=== PATIENT | female | born 1980 | race Caucasian/White ===

== ENCOUNTER 2017-07-06 09:28 | Emergency (ER) | payer MEDICAID, OTHER ==
[2017-07-06 09:38] VITALS: BP 112/73
--- NOTE | 2017-07-06 12:09 | ED Physician Documentation ---
PD HPI URI - Stated complaint Stated Complaint: SORE THROAT - Chief complaint Chief Complaint: Heent - History obtained from History obtained from: Patient - History of Present Illness Timing - onset: Other (Sore throat predominantly left-sided with lymph node swelling since yesterday without cough or rhinorrhea. She has had body aches and subjective fevers.) Review of Systems Constitutional: reports: Fever, Chills, Myalgias. 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: Yes - POLST Patient has POLST: No PD ED PE NORMAL - Vitals Vital signs reviewed: Yes - General General: Alert and oriented X 3, No acute distress - HEENT HEENT: Other (Significant tonsillar enlargement on the left with some exudates and moderate anterior cervical adenopathy, also predominantly on the left.) - Neuro Neuro: Alert and oriented X 3, Normal speech Results - Vitals Vitals: Vital Signs - 24 hr 07/06/17 09:35 Temperature 36.5 C Heart Rate 83 Respiratory 20 Rate Blood Pressure 112/73 O2 Saturation 100 Oxygen O2 Source Room air - Labs Labs: Laboratory Tests 07/06/17 09:38 Group A Strep Rapid Negative PD MEDICAL DECISION MAKING - ED course ED course: 4 out of 4 Cent[facility] will treat presumptively despite negative strep. Departure - Departure Disposition: 01 Home, Self Care Clinical Impression: Pharyngitis Qualifiers: Pharyngitis/tonsillitis etiology: unspecified etiology Qualified Code(s): J02.9 - Acute pharyngitis, unspecified Condition: Good Record reviewed to determine appropriate education?: Yes Instructions: ED Strep Pharyngitis Poss Prescriptions: Penicillin V Potassium 500 mg PO QID #40 tablet Comments: Ibuprofen as needed for pain. Drink plenty of fluids. Call your doctor to arrange a follow-up appointment, make the next available appointment. In the interim, return anytime if worse or if new symptoms develop.
== END 2017-07-06 12:18 | disposition home or self-care (01) ==
LOC: ED 09:28
DX: J02.9 Acute pharyngitis, unspecified (principal)
CPT/HCPCS: 87070; 87430; 99283

== ENCOUNTER 2018-07-15 12:35 | Outpatient (CLI) | payer MEDICAID | END 2018-07-15 12:36 | disposition home or self-care (01) | LOC: LAB 12:35 | PROVIDERS: ATTEND Nurse Practitioner Obstetrics & Gynecology | DX: Z32.01 Encounter for pregnancy test, result positive (principal) | CPT/HCPCS: 36415; 84702 ==

== ENCOUNTER 2018-09-22 08:00 | Outpatient (CLI) | payer MEDICAID ==
[2018-09-22 14:17] LABS: MUDS CUTOFF CONCENTRATIONS CUTOFF CONC BELOW:
[2018-09-22 14:43] LABS: AMPHETAMINE SCREEN,URINE NEGATIVE (NEGATIVE); BENZODIAZEPINES SCREEN, URINE NEGATIVE (NEGATIVE); COCAINE SCREEN URINE NEGATIVE (NEGATIVE); METHADONE SCREEN, URINE NEGATIVE (NEGATIVE); METHAMPHETAMINES SCREEN, URINE NEGATIVE (NEGATIVE); OPIATE SCREEN, URINE NEGATIVE (NEGATIVE); OXYCODONE SCREEN, URINE NEGATIVE (NEGATIVE); PROPOXYPHENE SCREEN, URINE NEGATIVE (NEGATIVE); TRICYCLIC ANTIDEPRESSANT,URINE NEGATIVE (NEGATIVE)
== END 2018-09-22 23:59 | disposition home or self-care (01) ==
LOC: LAB.R 08:00
PROVIDERS: ATTEND Nurse Practitioner Obstetrics & Gynecology
DX: Z36.9 Encounter for antenatal screening, unspecified (principal); Z11.3 Encounter for screening for infections with a predominantly sexual mode of transmission
CPT/HCPCS: 80306; 87491; 87591

== ENCOUNTER 2018-09-25 09:36 | Outpatient (CLI) | payer MEDICAID ==
[2018-09-25 09:52] LABS: BASOPHILS # (AUTO) 0.1 10^3/uL (0.0-0.1); BASOPHILS % (AUTO) 0.9 %; EOSINOPHILS # (AUTO) 0.1 10^3/uL (0.0-0.7); EOSINOPHILS % (AUTO) 1.1 %; HGB - HEMOGLOBIN 11.2 g/dL (12.0-16.0); LYMPHOCYTES # (AUTO) 2.1 10^3/uL (1.5-3.5); LYMPHOCYTES % (AUTO) 21.6 %; MEAN CORPUSCULAR HEMOGLOBIN 30.1 pg (27.0-31.0); MEAN CORPUSCULAR HGB CONC 33.9 g/dL (32.0-36.0); MEAN CORPUSCULAR VOLUME 88.7 fL (81.0-99.0); MEAN PLATELET VOLUME 7.6 fL (7.9-10.8); MONOCYTES # (AUTO) 0.7 10^3/uL (0.0-1.0); MONOCYTES % (AUTO) 7.1 %; NEUTROPHILS # (AUTO) 6.7 10^3/uL (1.5-6.6); NEUTROPHILS % (AUTO) 69.3 %; PLT - PLATELET COUNT 297 10^3/uL (130-450); RED BLOOD COUNT 3.73 10^6/uL (4.20-5.40); RED CELL DISTRIBUTION WIDTH 12.8 % (12.0-15.0); WHITE BLOOD COUNT 9.6 x10^3/uL (4.8-10.8)
[2018-09-25 10:55] LABS: BILIRUBIN,URINE NEGATIVE (NEGATIVE); GLUCOSE, URINE (UA) NEGATIVE (NEGATIVE); KETONES,URINE (UA) NEGATIVE (NEGATIVE); LEUKOCYTE ESTERASE, URINE SMALL (NEGATIVE); NITRITE,URINE NEGATIVE (NEGATIVE); OCCULT BLOOD,URINE TRACE-LYSE (NEGATIVE); PH,URINE 5.5 PH (5.0-7.5); PROTEIN,URINE NEGATIVE (NEGATIVE); UROBILINOGEN,URINE 0.2 (NORMAL) E.U./dL (NORMAL)
[2018-09-25 11:12] LABS: CLARITY,URINE HAZY (CLEAR)
[2018-09-25 11:36] LABS: BACTERIA,URINE Rare /HPF (None Seen); SQUAMOUS EPITHELIAL CELL,UR FEW Squamous (<= Few)
[2018-09-26 13:27] LABS: HEPATITIS C ANTIBODY NON-REACTIVE (NON-REACTIVE)
[2018-09-26 13:28] LABS: HEPATITIS B SURFACE ANTIGEN NON-REACTIVE (NON-REACTIVE)
[2018-09-26 14:15] LABS: HIV AG/AB 4TH GEN NON-REACTIVE (NON-REACTIVE)
== END 2018-09-25 09:37 | disposition home or self-care (01) ==
LOC: LAB 09:36
PROVIDERS: ATTEND Nurse Practitioner Obstetrics & Gynecology
DX: Z36.9 Encounter for antenatal screening, unspecified (principal)
CPT/HCPCS: 36415; 81001; 81599; 85025; 86762; 86803; 86850; 86900; 86901; 87086; 87340; 87389

== ENCOUNTER 2019-03-06 08:00 | Outpatient (CLI) | payer MEDICAID ==
[2019-03-06 19:21] LABS: TOTAL PROTEIN 24HR,URINE 168 mg/24hr (40-150); TOTAL PROTEIN,URINE TIMED 7 mg/dL; TOTAL VOLUME 24HRS,URINE 2400 mL
== END 2019-03-06 23:59 | disposition home or self-care (01) ==
LOC: LAB.R 08:00
PROVIDERS: ATTEND Student in an Organized Health Care Education/Training Program
DX: O12.10 Gestational proteinuria, unspecified trimester (principal); I10 Essential (primary) hypertension
CPT/HCPCS: 84156

== ENCOUNTER 2023-08-01 13:10 | Emergency (ER) | payer MEDICAID ==
[2023-08-01 13:24] VITALS: BP 136/83; O2SAT 100
== END 2023-08-01 15:55 | disposition left against medical advice (07) ==
LOC: ED 13:10
DX: Z53.21 Procedure and treatment not carried out due to patient leaving prior to being seen by health care provider (principal)

== ENCOUNTER 2023-08-13 08:44 | Emergency (ER) | payer MEDICAID ==
[2023-08-13 09:05] VITALS: O2SAT 98
--- NOTE | 2023-08-13 09:11 | ED Physician Documentation ---
PD HPI OPHTHO - Stated complaint Stated Complaint: RT EYE SWELLING - Chief complaint Chief Complaint: Heent - History obtained from History obtained from: Patient - History of Present Illness Timing - onset: Today, Last night (noted some discomfort of right eyelid and side of face last night. With swelling of eyelid today and electirical feeling toward the ear to eye. No tenderness. No eye pain. No crusting nor matting.) Timing - details: Abrupt onset, Still present Location: Right Quality / character: No: Itching Associated symptoms: Swelling (of eyelids). No: Discharge, Matting, FB sensation, Photophobia, Decreased vision, Headache Contributing factors: No: Recent URI, FB Similar symptoms before: Has not had sx before (no similar process on face. She states has had intermittent areas of wekness or numbness of arms, leg, vision loss, or confusion lasting hours to days then resolves. Has seen Neurologist with MRIs head and neck, and blood testing. No Dx as yet. Not MS. 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 - Present Medications Home Medications: Ambulatory Orders Medication Instructions Recorded Confirmed Escitalopram Oxalate 20 mg PO DAILY 08/13/23 08/13/23 Valacyclovir HCl [Valtrex] 500 mg PO TID 5 Days #15 tablet 08/13/23 dexAMETHasone [Decadron] 4 mg PO DAILY #5 tablet 08/13/23 - Allergies Allergies/Adverse Reactions: Allergies Allergy/AdvReac Type Severity Reaction Status Date / Time No Known Drug Allergies Allergy Verified 08/13/23 08:51 - Social History Does the pt smoke?: No Smoking Status: Never smoker Does the pt drink ETOH?: Yes Does the pt have substance abuse?: Yes Substance Use and Type: Marijuana - Immunizations Immunizations are current?: Yes - POLST Patient has POLST: No PD ED PE NORMAL - Vitals Vital signs reviewed: Yes - General General: Alert and oriented X 3, No acute distress, Well developed/nourished - HEENT HEENT: PERRL, EOMI, Other (no eye pain per pt. eyelid with swelling and faint redness but no focal swelling/firm/tender. Normal sensation. eyebrow is actually raised without her meaning to, so overactive and not weakened. ) Results - Vitals Vitals: Oxygen O2 Source Room air PD Medical Decision Making - ED course Complexity details: considered differential (redness mild with swelling right eyelids, without focal bump/tender. No tender at nose tip. Feeling of abn sensation/electircal tinglint from ear to eye area. No weakness. Consider trigeminal or facial nerve process. Does not seem simple stye/etc. ), d/w patient ED course: she states she has had intermittent self limited focal neuro symptoms in the past in other areas. Has seen Neurologist with eval of labs and MRI head/neck without Dx. No MS in particular. Has seen Wrapper And Preserver as well. No Dx. Symptoms are not followed by headaches and no history of migraines. Unclear current disagnosis, if is yet another presentation of whatever that is, or if local process. Given the swelling of the eyelid, I do think something local, and with electrical feeling from ear to periorbital, would consider early trigeminal neuralgia or facial neuritis. Consider steroid and antiviral. Departure - Departure Disposition: 01 Home, Self Care Clinical Impression: Periorbital swelling, Facial neuritis Condition: Stable Record reviewed to determine appropriate education?: Yes Follow-Up: Mercedes Oliva ARNP [Primary Care Provider] - Prescriptions: dexAMETHasone [Decadron] 4 mg PO DAILY #5 tablet Valacyclovir HCl [Valtrex] 500 mg PO TID 5 Days #15 tablet Comments: This does not look like a bacterial infection. Seems to be an irritation of the nerve through the area with a skin response. I am not sure how this fits with your other episodes of localized neurologic problems. In other situations around the face like this (like early Gracia's palsy or such), we would tend to treat with a combination of antiviral and steroid medications for several days thinking that may be part of the process. This is true and a reasonable percentage of Gracia's palsy which would be more weakness of the muscles from nerve irritation. 1 would consider overstimulation of the nerve to be a similar early process. We can try these over the next few days and see how your symptoms are. Return if more redness or localized swelling to suggest bacterial infection or any other symptoms develop. I sent your prescriptions to your preferred pharmacy. Forms: PCP List Discharge Date/Time: 08/13/23 10:14
[2023-08-13] MEDS: dexAMETHasone 4 MG TABLET PO STA (10:10)
[2023-08-13] MEDS: valACYclovir 500 MG TABLET PO STA (10:10)
[2023-08-13 10:18] VITALS: BP 127/80
== END 2023-08-13 10:14 | disposition home or self-care (01) ==
LOC: ED 08:44
DX: H02.843 Edema of right eye, unspecified eyelid (principal); G51.8 Other disorders of facial nerve
CPT/HCPCS: 99282; 99283; A9270; J8540

== ENCOUNTER 2023-09-16 08:00 | Outpatient (CLI) | payer MEDICAID, OTHER ==
[2023-09-16 17:32] LABS: BACTERIAL VAGINOSIS DNA POSITIVE (NEGATIVE); CANDIDA GLABRATA DNA NEGATIVE (NEGATIVE); CANDIDA GROUP DNA NEGATIVE (NEGATIVE); CANDIDA KRUSEI DNA NEGATIVE (NEGATIVE); TRICHOMONAS VAGINALIS DNA NEGATIVE (NEGATIVE)
== END 2023-09-16 23:59 | disposition home or self-care (01) ==
LOC: LAB.S 08:00
PROVIDERS: ATTEND Nurse Practitioner
DX: R30.0 Dysuria (principal); N89.8 Other specified noninflammatory disorders of vagina
CPT/HCPCS: 81514; 87086

== ENCOUNTER 2023-09-27 16:59 | Outpatient (CLI) | payer OTHER ==
[2023-09-27 20:48] LABS: BACTERIAL VAGINOSIS DNA NEGATIVE (NEGATIVE); CANDIDA GLABRATA DNA NEGATIVE (NEGATIVE); CANDIDA GROUP DNA NEGATIVE (NEGATIVE); CANDIDA KRUSEI DNA NEGATIVE (NEGATIVE); TRICHOMONAS VAGINALIS DNA NEGATIVE (NEGATIVE)
[2023-09-27 22:21] LABS: CHLAMYDIA TRACHOMATIS DNA NEGATIVE (NEGATIVE); NEISSERIA GONORRHOEAE DNA NEGATIVE (NEGATIVE); TRICHOMONAS VAGINALIS DNA NEGATIVE (NEGATIVE)
== END 2023-09-27 17:00 | disposition home or self-care (01) ==
LOC: LAB.F 16:59
PROVIDERS: ATTEND Physician Assistant Medical
DX: N89.8 Other specified noninflammatory disorders of vagina (principal)
CPT/HCPCS: 81514; 87491; 87591; 87661

== ENCOUNTER 2023-10-04 07:00 | Outpatient (CLI) | payer OTHER | END 2023-10-04 23:59 | disposition home or self-care (01) | LOC: LAB.S 07:00 | PROVIDERS: ATTEND Registered Nurse | DX: N30.00 Acute cystitis without hematuria (principal); D25.9 Leiomyoma of uterus, unspecified; R10.9 Unspecified abdominal pain; R10.2 Pelvic and perineal pain | CPT/HCPCS: 87086 ==

== ENCOUNTER 2023-10-10 09:05 | Outpatient (CLI) | payer OTHER ==
[2023-10-10 21:23] LABS: ESTIMATED AVERAGE GLUCOSE 108 mg/dL (70-100); HEMOGLOBIN A1c% 5.4 % (4.27-6.07)
== END 2023-10-10 09:06 | disposition home or self-care (01) ==
LOC: LAB.S 09:05
PROVIDERS: ATTEND Registered Nurse
DX: D25.9 Leiomyoma of uterus, unspecified (principal); R10.9 Unspecified abdominal pain; R10.2 Pelvic and perineal pain; N30.00 Acute cystitis without hematuria
CPT/HCPCS: 36415; 83036; 87086

== ENCOUNTER 2023-10-10 13:13 | Outpatient (CLI) | payer OTHER ==
--- NOTE | 2023-10-10 19:53 | Ultrasound Report ---
PROCEDURE: Pelvic w/Transvaginal INDICATIONS: PELVIC PAIN TECHNIQUE: Real-time scanning was performed of the pelvic organs, with image documentation. Additional endovagi nal scanning was necessary due to incomplete visualization of the adnexal and endometrial structures by transabdominal scanning. COMPARISON: None. FINDINGS: Uterus: Uterus is retroverted and normal in size at 7.8 x 5.1 x 6.7 cm. The myometrium is homogeneo us. The endometrium measures 16 mm in combined thickness. Echogenic mass without hypervascularity i n the endometrium, measuring 2.5 x 0.9 x 2.2 cm. Intramural mass along the posterior margin measuring 4.8 x 2.7 x 4.4 cm. Ovaries: The right ovary measures 3.6 x 2.5 x 1.8 cm, with a calculated ovarian volume of 8 cc. The left ovary measures 2.6 x 2.7 x 1.4 cm, with a calculated ovarian volume of 5 cc. The ovaries have a normal sonographic appearance. Less than 12 follicles can be seen in each ovary. No adnexal bria s are seen. No cystic lesions measuring greater than 3 cm. Other: No pathologic free abdominal or pelvic fluid. IMPRESSION: Echogenic mass without hypervascularity within the endometrium, measuring 2.5 x 0.9 x 2.2 cm. Differe ntial includes polyp, fibroid, less likely malignancy in this age group. Tissue sampling is warranted . Intramural mass without discernible features along the posterior margin of the uterus, likely within the junctional zone. Differential favors focal adenomyosis over fibroid. Six-month follow-up with ult rasound versus MRI should be considered. Reviewed by: David Bailey MD on 10/10/2023 7:52 PM PDT Approved by: David Bailey MD on 10/10/2023 7:52 PM PDT Station ID: [id number]
== END 2023-10-10 13:14 | disposition home or self-care (01) ==
LOC: DI 13:13
PROVIDERS: ATTEND Physician Assistant Medical
DX: R93.89 Abnormal findings on diagnostic imaging of other specified body structures (principal); N30.00 Acute cystitis without hematuria
CPT/HCPCS: 36415; 83036; 87086

== ENCOUNTER 2023-11-21 07:15 | Outpatient (CLI) | payer OTHER | END 2023-11-21 07:16 | disposition home or self-care (01) | LOC: LAB.S 07:15 | PROVIDERS: ATTEND Physician Assistant Medical | DX: R53.83 Other fatigue (principal) | CPT/HCPCS: 36415; 82024; 82533 ==

== ENCOUNTER 2023-11-28 11:16 | Outpatient (CLI) | payer OTHER ==
[2023-11-28 11:28] LABS: BASOPHILS # (AUTO) 0.1 10^3/uL (0.0-0.1); BASOPHILS % (AUTO) 0.8 %; EOSINOPHILS # (AUTO) 0.2 10^3/uL (0.0-0.7); EOSINOPHILS % (AUTO) 1.4 %; HCT - HEMATOCRIT 41.1 % (37.0-47.0); HGB - HEMOGLOBIN 12.8 g/dL (12.0-16.0); LYMPHOCYTES % (AUTO) 28.7 %; MEAN CORPUSCULAR HEMOGLOBIN 27.4 pg (27.0-31.0); MEAN CORPUSCULAR HGB CONC 31.1 g/dL (32.0-36.0); MEAN PLATELET VOLUME 9.6 fL (7.9-10.8); MONOCYTES # (AUTO) 0.9 10^3/uL (0.0-1.0); MONOCYTES % (AUTO) 8.9 %; NEUTROPHILS # (AUTO) 6.2 10^3/uL (1.5-6.6); NEUTROPHILS % (AUTO) 59.4 %; PLT - PLATELET COUNT 355 10^3/uL (130-450); RED BLOOD COUNT 4.67 10^6/uL (4.20-5.40); RED CELL DISTRIBUTION WIDTH 12.4 % (12.0-15.0); WHITE BLOOD COUNT 10.5 x10^3/uL (4.8-10.8)
[2023-11-28 12:01] LABS: ALBUMIN 4.4 g/dL (3.2-5.5); ALBUMIN/GLOBULIN RATIO 1.7 (1.0-2.2); BILIRUBIN,TOTAL 0.5 mg/dL (0.2-1.0); CALCIUM 9.3 mg/dL (8.5-10.3); CREATININE 0.7 mg/dL (0.6-1.3)
[2023-11-28 12:16] LABS: THYROID STIMULATING HORMONE 1.42 uIU/mL (0.34-5.60)
[2023-11-28 13:23] LABS: ESTIMATED AVERAGE GLUCOSE 103 mg/dL (70-100); HEMOGLOBIN A1c% 5.2 % (4.27-6.07)
== END 2023-11-28 11:17 | disposition home or self-care (01) ==
LOC: LAB 11:16
PROVIDERS: ATTEND Registered Nurse
DX: M54.50 Low back pain, unspecified (principal); G89.29 Other chronic pain; R55 Syncope and collapse; R73.9 Hyperglycemia, unspecified; R51.9 Headache, unspecified
CPT/HCPCS: 36415; 80053; 83036; 84443; 85025